=== PATIENT | female | born 2000 | race American Indian/Alaskan Native ===

== ENCOUNTER 2021-11-14 10:25 | Emergency (ER) | payer OTHER ==
[2021-11-14] MEDS ORDERED: HYDROcodone/ACETAMINOPHEN 5-325 MG TAB PO ONE (10:37)
[2021-11-14] MEDS ORDERED: SODIUM CHLORIDE 0.9% 1000 ML 1,000 ML IV ONE (10:37)
[2021-11-14] MEDS ORDERED: ONDANSETRON 4 MG/2 ML INJ IV ONE (10:37)
--- NOTE | 2021-11-14 10:40 | Emergency Department Report ---
ED Female HPI - General Chief complaint: Urogenital-Female Stated complaint: PAIN,DISCHARGE Time Seen by Provider: 11/14/21 10:29 Source: patient, family Mode of arrival: Ambulatory Limitations: No Limitations - History of Present Illness Initial comments: Patient is a 21-year-old female presents emergency with complaints of pelvic pain that began a week ago. She states the first 3 days she was having nausea and vomiting but has since resolved. She states that she is also having watery vaginal discharge and has had a pink tinge to her discharge in the last couple days and is experiencing dysuria. She states that she is not sure if she could be . She states that she did have sexual intercourse without protection is concerned for STDs. She denies any fever, back pain, diarrhea. No past medical history. No medication allergies. - Related Data Previous Rx's Medication Instructions Recorded Last Taken Type Doxycycline Hyclate [Doxycycline 100 mg PO BID 7 Days #14 tab 11/14/21 Unknown Rx Hyclate TAB] metroNIDAZOLE [Flagyl] 500 mg PO BID 7 Days #14 tab 11/14/21 Unknown Rx Allergies Allergy/AdvReac Type Severity Reaction Status Date / Time wheat Allergy Unknown Verified 11/14/21 10:26 ED Review of Systems ROS: Stated complaint: PAIN,DISCHARGE Other details as noted in HPI Comment: All other systems reviewed and negative ED Past Medical Hx - Past Medical History Previous Medical History?: No - Surgical History Past Surgical History?: No - Medications Home Medications: Home Medications Medication Instructions Recorded Confirmed Last Taken Type Doxycycline Hyclate [Doxycycline 100 mg PO BID 7 Days #14 tab 11/14/21 Unknown Rx Hyclate TAB] metroNIDAZOLE [Flagyl] 500 mg PO BID 7 Days #14 tab 11/14/21 Unknown Rx ED Physical Exam - General Limitations: No Limitations General appearance: alert, in no apparent distress - Head Head exam: Present: atraumatic, normocephalic - Eye Eye exam: Present: normal appearance - ENT ENT exam: Present: mucous membranes moist - Respiratory Respiratory exam: Present: normal lung sounds bilaterally. Absent: respiratory distress, wheezes, rales, rhonchi, stridor, chest wall tenderness, accessory muscle use, decreased breath sounds, prolonged expiratory - Cardiovascular Cardiovascular Exam: Present: regular rate, normal rhythm, normal heart sounds. Absent: systolic murmur, diastolic murmur, rubs, gallop - GI/Abdominal GI/Abdominal exam: Present: soft, tenderness (suprapubic), normal bowel sounds. Absent: distended, guarding, rebound, rigid - Speculum exam: Present: other (family resource specialist: duyen, riffler tender, difficult exam to perform, pt is having pain during examination, there is moderate blood in the vaginal vault, swabs obtained, unable to visualize cervix, unable to perform bimanual exam) - Neurological Exam Neurological exam: Present: alert, oriented X3 - Psychiatric Psychiatric exam: Present: normal affect, normal mood - Skin Skin exam: Present: warm, dry, intact ED Course Vital Signs 11/14/21 11/14/21 11/14/21 10:29 11:10 12:06 Temperature 98.2 F 98.2 F Pulse Rate 121 H 88 Respiratory 18 18 Rate Blood Pressure 125/76 Blood Pressure 112/75 [Right] O2 Sat by Pulse 97 99 100 Oximetry 11/14/21 12:43 Temperature 98.5 F Pulse Rate 71 Respiratory 16 Rate Blood Pressure Blood Pressure 127/69 [Right] O2 Sat by Pulse 100 Oximetry ED Medical Decision Making - Lab Data Result diagrams: 11/14/21 10:51 11/14/21 10:51 Lab Results 11/14/21 11/14/21 11/14/21 Range/Units 10:51 10:51 10:51 WBC 3.2 L (4.5-11.0) K/mm3 RBC 5.00 (3.65-5.03) M/mm3 Hgb 14.1 (10.1-14.3) gm/dl Hct 43.3 H (30.3-42.9) % MCV 87 (79-97) fl MCH 28 (28-32) pg MCHC 33 (30-34) % RDW 13.1 L (13.2-15.2) % Plt Count 160 (140-440) K/mm3 Lymph % (Auto) Motor Hotel Manager Add Manual Diff Complete Total Counted 100 Seg Neutrophils % Motor Hotel Manager Seg Neuts % (Manual) 29.0 L (40.0-70.0) % Band Neutrophils % 0 % Lymphocytes % (Manual) 50.0 H (13.4-35.0) % Reactive Lymphs % (Man) 12.0 % Monocytes % (Manual) 7.0 (0.0-7.3) % Eosinophils % (Manual) 2.0 (0.0-4.3) % Basophils % (Manual) 0 (0.0-1.8) % Metamyelocytes % 0 % Myelocytes % 0 % Promyelocytes % 0 % Blast Cells % 0 % Nucleated RBC % Not Reportable Seg Neutrophils # Man 0.9 L (1.8-7.7) K/mm3 Band Neutrophils # 0.0 K/mm3 Lymphocytes # (Manual) 1.6 (1.2-5.4) K/mm3 Abs React Lymphs (Man) 0.4 K/mm3 Monocytes # (Manual) 0.2 (0.0-0.8) K/mm3 Eosinophils # (Manual) 0.1 (0.0-0.4) K/mm3 Basophils # (Manual) 0.0 (0.0-0.1) K/mm3 Metamyelocytes # 0.0 K/mm3 Myelocytes # 0.0 K/mm3 Promyelocytes # 0.0 K/mm3 Blast Cells # 0.0 K/mm3 WBC Morphology Not Reportable Hypersegmented Neuts Not Reportable Hyposegmented Neuts Not Reportable Hypogranular Neuts Not Reportable Smudge Cells Not Reportable Toxic Granulation Not Reportable Toxic Vacuolation Not Reportable Dohle Bodies Not Reportable Pelger-Huet Anomaly Not Reportable Aye Rods Not Reportable Platelet Estimate Consistent w auto Clumped Platelets Not Reportable Plt Clumps, EDTA Not Reportable Large Platelets Not Reportable Giant Platelets Not Reportable Platelet Satelliting Not Reportable Plt Morphology Comment Not Reportable RBC Morphology Normal Dimorphic RBCs Not Reportable Polychromasia Not Reportable Hypochromasia Not Reportable Poikilocytosis Not Reportable Anisocytosis Not Reportable Microcytosis Not Reportable Macrocytosis Not Reportable Spherocytes Not Reportable Pappenheimer Bodies Not Reportable Sickle Cells Not Reportable Target Cells Not Reportable Tear Drop Cells Not Reportable Ovalocytes Not Reportable Helmet Cells Not Reportable Barr-[place] Bodies Not Reportable [place] Rings Not Reportable [place] Cells Not Reportable Bite Cells Not Reportable Crenated Cell Not Reportable Elliptocytes Not Reportable Acanthocytes (Spur) Not Reportable Rouleaux Not Reportable Hemoglobin C Crystals Not Reportable Schistocytes Not Reportable Malaria parasites Not Reportable Prosper Bodies Not Reportable Hem Pathologist Commnt No Sodium 134 L (137-145) mmol/L Potassium 4.0 (3.6-5.0) mmol/L Chloride 101.0 (98-107) mmol/L Carbon Dioxide 24 (22-30) mmol/L Anion Gap 13 mmol/L BUN 8 (7-17) mg/dL Creatinine 0.8 (0.6-1.2) mg/dL Estimated GFR > 60 ml/min BUN/Creatinine Ratio 10 % Glucose 104 H (65-100) mg/dL Calcium 9.6 (8.4-10.2) mg/dL Total Bilirubin 0.20 (0.1-1.2) mg/dL AST 24 (5-40) units/L ALT 13 (7-56) units/L Alkaline Phosphatase 87 (35-129) units/L Total Protein 8.8 H (6.3-8.2) g/dL Albumin 4.3 (3.9-5) g/dL Albumin/Globulin Ratio 1.0 % Lipase 55 (13-60) units/L HCG, Quant < 2 (0-4) mIU/mL Urine Color (Yellow) Urine Turbidity (Clear) Urine pH (5.0-7.0) Ur Specific [place] (1.003-1.030) Urine Protein (Negative) mg/dL Urine Glucose (UA) (Negative) mg/dL Urine Ketones (Negative) mg/dL Urine Blood (Negative) Urine Nitrite (Negative) Urine Bilirubin (Negative) Urine Urobilinogen (<2.0) mg/dL Ur Leukocyte Esterase (Negative) Urine WBC (Auto) (0.0-6.0) /HPF Urine RBC (Auto) (0.0-6.0) /HPF U Epithel Cells (Auto) (0-13.0) /HPF Urine Mucus /HPF 11/14/21 11/14/21 Range/Units 10:51 10:56 WBC (4.5-11.0) K/mm3 RBC (3.65-5.03) M/mm3 Hgb (10.1-14.3) gm/dl Hct (30.3-42.9) % MCV (79-97) fl MCH (28-32) pg MCHC (30-34) % RDW (13.2-15.2) % Plt Count (140-440) K/mm3 Lymph % (Auto) Add Manual Diff Total Counted Seg Neutrophils % Seg Neuts % (Manual) (40.0-70.0) % Band Neutrophils % % Lymphocytes % (Manual) (13.4-35.0) % Reactive Lymphs % (Man) % Monocytes % (Manual) (0.0-7.3) % Eosinophils % (Manual) (0.0-4.3) % Basophils % (Manual) (0.0-1.8) % Metamyelocytes % % Myelocytes % % Promyelocytes % % Blast Cells % % Nucleated RBC % Seg Neutrophils # Man (1.8-7.7) K/mm3 Band Neutrophils # K/mm3 Lymphocytes # (Manual) (1.2-5.4) K/mm3 Abs React Lymphs (Man) K/mm3 Monocytes # (Manual) (0.0-0.8) K/mm3 Eosinophils # (Manual) (0.0-0.4) K/mm3 Basophils # (Manual) (0.0-0.1) K/mm3 Metamyelocytes # K/mm3 Myelocytes # K/mm3 Promyelocytes # K/mm3 Blast Cells # K/mm3 WBC Morphology TNR Hypersegmented Neuts Hyposegmented Neuts Hypogranular Neuts Smudge Cells Toxic Granulation Toxic Vacuolation Dohle Bodies Pelger-Huet Anomaly Aye Rods Platelet Estimate Clumped Platelets Plt Clumps, EDTA Large Platelets Giant Platelets Platelet Satelliting Plt Morphology Comment RBC Morphology Dimorphic RBCs Polychromasia Hypochromasia Poikilocytosis Anisocytosis Microcytosis Macrocytosis Spherocytes Pappenheimer Bodies Sickle Cells Target Cells Tear Drop Cells Ovalocytes Helmet Cells Barr-[place] Bodies [place] Rings [place] Cells Bite Cells Crenated Cell Elliptocytes Acanthocytes (Spur) Rouleaux Hemoglobin C Crystals Schistocytes Malaria parasites Prosper Bodies Hem Pathologist Commnt Sodium (137-145) mmol/L Potassium (3.6-5.0) mmol/L Chloride (98-107) mmol/L Carbon Dioxide (22-30) mmol/L Anion Gap mmol/L BUN (7-17) mg/dL Creatinine (0.6-1.2) mg/dL Estimated GFR ml/min BUN/Creatinine Ratio % Glucose (65-100) mg/dL Calcium (8.4-10.2) mg/dL Total Bilirubin (0.1-1.2) mg/dL AST (5-40) units/L ALT (7-56) units/L Alkaline Phosphatase (35-129) units/L Total Protein (6.3-8.2) g/dL Albumin (3.9-5) g/dL Albumin/Globulin Ratio % Lipase (13-60) units/L HCG, Quant (0-4) mIU/mL Urine Color Rubi (Yellow) Urine Turbidity Cloudy (Clear) Urine pH 6.0 (5.0-7.0) Ur Specific [place] 1.027 (1.003-1.030) Urine Protein 100 mg/dl (Negative) mg/dL Urine Glucose (UA) Neg (Negative) mg/dL Urine Ketones Neg (Negative) mg/dL Urine Blood Lg (Negative) Urine Nitrite Neg (Negative) Urine Bilirubin Neg (Negative) Urine Urobilinogen < 2.0 (<2.0) mg/dL Ur Leukocyte Esterase Neg (Negative) Urine WBC (Auto) 4.0 (0.0-6.0) /HPF Urine RBC (Auto) > 182.0 (0.0-6.0) /HPF U Epithel Cells (Auto) 5.0 (0-13.0) /HPF Urine Mucus 1+ /HPF Vital Signs 11/14/21 11/14/21 11/14/21 10:29 11:10 12:06 Temperature 98.2 F 98.2 F Pulse Rate 121 H 88 Respiratory 18 18 Rate Blood Pressure 125/76 Blood Pressure 112/75 [Right] O2 Sat by Pulse 97 99 100 Oximetry 11/14/21 12:43 Temperature 98.5 F Pulse Rate 71 Respiratory 16 Rate Blood Pressure Blood Pressure 127/69 [Right] O2 Sat by Pulse 100 Oximetry - Medical Decision Making Patient is a 21-year-old female presents emergency with complaints of pelvic p ain that began a week ago. She states the first 3 days she was having nausea and vomiting but has since resolved. She states that she is also having watery vaginal discharge and has had a pink tinge to her discharge in the last couple days and is experiencing dysuria. She states that she is not sure if she could be . She states that she did have sexual intercourse without protection is concerned for STDs. She denies any fever, back pain, diarrhea. No past medical history. No medication allergies. Initial vitals with tachycardia which improved upon repeat. Patient has suprapubic abdominal tenderness on exam,family resource specialist: breana davalos, difficult exam to perform, pt is having pain during examination, there is moderate blood in the vaginal vault, swabs obtained, unable to visualize cervix, unable to perform bimanual exam. Labs are stable. No leukocytosis. UA shows red blood cells, no signs of urinary tract infection. Wet prep shows evidence of trichomonas and yeast. Patient denies any vaginal itching. Given that pelvic examination was difficult due to pain, CT abdomen pelvis with IV contrast ordered to rule out signs of TOA. Patient will not be able to tolerate a pelvic ultrasound as she was not able to tolerate a speculum. I believe patient symptoms are likely related to PID. Patient given IV Rocephin, IV fluids, antiemetic, pain medication. Patient's symptoms improved and she was tolerating p.o. intake. Awaiting CT scan to be performed. I called CT multiple times asked that the nurse and she advised that she was the only tech present so therefore there was a delay. Discussed with patient the delay in CT. Patient states that she was hungry and she wanted to leave. I advised patient she had to leave AGAINST MEDICAL ADVICE. I discussed the risk associated with doing so and this was witnessed by breana Davalos. Patient was given a prescription for doxycycline and Flagyl although she is still leaving AGAINST MEDICAL ADVICE. Advised patient Please take medication as prescribed. You are leaving today AGAINST MEDICAL ADVICE with the risk of serious infection, , permanent disability, loss of quality of life. You need to follow-up with a MULTI P[employer]CH OPERATOR as soon as possible. Return to emergency room if you would like to seek treatment The patient is alert and oriented x3. The patient exhibits decision-making capacity. The patient is free from distracting injury. The risk of leaving without a complete medical examination, and AGAINST MEDICAL ADVICE, were explained to the patient, and they included , disability, paralysis, permanent loss of quality of life. Patient verbalized understanding to these and was able to articulate these risk in their own words. Critical care attestation.: If time is entered above; I have spent that time in minutes in the direct care of this critically ill patient, excluding procedure time. ED Disposition Clinical Impression: Pelvic pain, Vaginal discharge, Abnormal uterine bleeding (AUB), Concern about STD in female without diagnosis, Trichomonas vaginalis (TV) infection, Yeast detected Disposition: LEFT AGAINST MEDICAL ADVICE Is pt being admited?: No Does the pt Need Aspirin: No Condition: Undetermined Additional Instructions: Please take medication as prescribed. You are leaving today AGAINST MEDICAL ADVICE with the risk of serious infection, , permanent disability, loss of quality of life. You need to follow-up with a M[employer]I PUNCH OPERATOR as soon as possible. Return to emergency room if you would like to seek treatment Prescriptions: Doxycycline Hyclate [Doxycycline Hyclate TAB] 100 mg PO BID 7 Days #14 tab metroNIDAZOLE [Flagyl] 500 mg PO BID 7 Days #14 tab Referrals: LIZBET BUTLER MD [Staff Physician] - 2-3 Days Forms: AMA Form Time of Disposition: 11:08 Print Language: TURKMEN
[2021-11-14] MEDS ORDERED: cefTRIAXone/NS 1 GM/50 ML 1 GM/50 ML BAG IV ONE (11:15)
[2021-11-14 11:19] LABS: Hematocrit 43.3 % (30.3-42.9); Hemoglobin 14.1 gm/dl (10.1-14.3); Mean Corpuscular HGB Conc 33 % (30-34); Mean Corpuscular Volume 87 fl (79-97); Platelet Count 160 K/mm3 (140-440); Red Cell Distribution Width 13.1 % (13.2-15.2)
[2021-11-14 11:29] LABS: Alanine Aminotransferase 13 units/L (7-56); Albumin 4.3 g/dL (3.9-5); BUN/Creatinine Ratio 10; Blood Urea Nitrogen 8 mg/dL (7-17); Calcium 9.6 mg/dL (8.4-10.2); Hemolysis Index 6
[2021-11-14 12:13] LABS: Basophils % (Manual) 0 % (0.0-1.8); Total Cells Counted 100
[2021-11-14 12:14] LABS: Platelet Estimate Consistent w Auto; RBC Morphology Normal
[2021-11-14 12:44] VITALS: BP 127/69
[2021-11-14] MEDS ORDERED: MORPHINE 4 MG/1 ML INJ IV ONE (14:16)
[2021-11-14 14:23] LABS: Bilirubin,Urine NEG (Negative); Blood,Urine LG (Negative); Color,Urine Amber (Yellow); Mucus,Urine 1+ /HPF; Urobilinogen,Urine < 2.0 mg/dL (<2.0)
[2021-11-14 14:24] LABS: RBC,Urine > 182.0 /HPF (0.0-6.0)
== END 2021-11-14 17:03 | disposition left against medical advice (07) ==
LOC: ED 10:25
DX: A59.01 Trichomonal vulvovaginitis (principal); R10.2 Pelvic and perineal pain; B37.9 Candidiasis, unspecified; N89.8 Other specified noninflammatory disorders of vagina; N93.9 Abnormal uterine and vaginal bleeding, unspecified; Z20.2 Contact with and (suspected) exposure to infections with a predominantly sexual mode of transmission; Z91.02 Food additives allergy status; Z79.899 Other long term (current) drug therapy
CPT/HCPCS: 36415; 80053; 81001; 83690; 84702; 85007; 85025; 87210; 87591; 96365; 96375; 99284; J0696; J2270; J2405; J7030; 96361; Q0162